=== PATIENT | male | born 1965 | race Caucasian/White ===

== ENCOUNTER 2022-08-15 22:21 | Emergency (ER) | payer BC, OTHER ==
[2022-08-15] MEDS ORDERED: Sodium Chloride 0.9% 1000 ML 1,000 ML IV STA (22:40)
[2022-08-15] MEDS ORDERED: Zofran 4 MG/2 ML VIAL IV ONE (22:40)
[2022-08-15] MEDS ORDERED: MORPHINE SULFATE 4 MG INJ IV ONE (22:40)
[2022-08-15] MEDS ORDERED: MORPHINE SULFATE 4 MG INJ ONE (22:44)
[2022-08-15] MEDS ORDERED: Zofran 4 MG/2 ML VIAL ONE (22:44)
[2022-08-15] MEDS ORDERED: Sodium Chloride 0.9% 1000 ML 1,000 ML ONE (22:44)
[2022-08-15 22:53] LABS: Absolute Neutrophil Ct (ANC) 6.29 x10^3/uL (1.4-6.9); Basophil (Absolute #) 0.07 x10^3/uL (0-0.4); Eosinophil % 1.9 % (0.00-5.0); Eosinophil (Absolute #) 0.18 x10^3/uL (0-0.5); Hematocrit 46.1 % (42-50); Hemoglobin 15.7 g/dL (12.5-18.0); Lymphocyte (Absolute #) 2.46 x10^3/uL (1.0-4.6); Lymphocytes % 25.5 % (24.0-44.0); Mean Cell Volume 90.2 fL (78-100); Mean Corpuscular Hemoglobin 30.7 pg (26-32); Mean Corpuscular Hgb Concent. 34.1 g/dL (32-36); Mean Platelet Volume 10.4 fL (7.5-11.0); Monocyte (Absolute #) 0.59 x10^3/uL (0.0-1.3); Monocytes % 6.1 % (0.0-12.0); Neutrophil % 65.1 % (36.0-66.0); Platelet Count 197 x10^3/uL (150-450); Red Blood Count 5.11 x10^6/uL (4.1-5.6); Red Cell Distribution Width 13.6 % (11.5-14.0); White Blood Count 9.7 x10^3/uL (4.0-10.5)
[2022-08-15 23:07] LABS: ALBUMIN 4.9 g/dL (3.5-5.0); ALKALINE PHOSPHATASE 90 U/L (38-126); ANION GAP 12.2 MEQ/L (5-15); BLOOD UREA NITROGEN 20 mg/dL (9-20); CHLORIDE 99 mmol/L (98-107); Calcium 9.3 mg/dL (8.4-10.2); Carbon Dioxide 31 mmol/L (22-30); Creatinine 1 1.01 mg/dL (0.66-1.25); EST GLOMERULAR FILTRATION RATE > 60.0 ML/MIN; Glucose 102 mg/dL (74-106); LIPASE 72 U/L (23-300); SGOT/AST 64 U/L (17-59); SGPT/ALT 63 U/L (0-50); SODIUM 139 mmol/L (137-145); Total Protein 8.4 g/dL (6.3-8.2)
[2022-08-16 00:05] VITALS: PULSE 81
--- NOTE | 2022-08-16 00:08 | ERPHSYRPT ---
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 Triage Nursing Assessment: Patient A/O times 4. Patient able to follow instructions without difficulty. Patient states he thought he had pulled a muscle this Sunday. States his job sent him to [facility] and he was told he had pulled a muscle and was given flexeril. Patient stated the pain was getting better but started to flare up again tonight. Physician History: 57-year-old male presents to our ED with right upper quadrant pain. Pain started on Sunday 4 days ago when he was at work. 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 Patient was sent and new care. [facility] diagnosed him with a pulled muscle. Patient was prescribed Aleve and Flexeril. Pain improved. Patient states pain recurred approximately 1 hour prior to arrival after he coughed. Pain described as an ache that is localized. No radiation. Pain worse palpation right upper quadrant. Pain improved with rest. No blunt trauma. No chest pain or shortness of breath. No nausea vomiting or diaphoresis. Patient voices no other complaints or concerns at this time. Portions of this note were created with voice recognition technology. There may be grammatical, spelling, punctuation or sound alike errors Timing/Duration: day(s) (4 days) Severity: moderate Modifying Factors: Improves With: movement Associated Symptoms: denies symptoms Allergies/Adverse Reactions: No Known Drug Allergies Allergy (Unverified 08/16/22 00:35) Hx Tetanus, Diphtheria Vaccination/Date Given: No Hx Influenza Vaccination/Date Given: No Hx Pneumococcal Vaccination/Date Given: No Immunizations Up to Date: Yes Travel Risk - International Travel Have you traveled outside of the country in past 3 weeks: No - Coronavirus Screening Are you exhibiting any of the following symptoms?: No Close contact with a COVID-19 positive Pt in past 14-21 Days: No - Vaccine Status Have you recieved a Covid-19 vaccination: No - Review of Systems Constitutional: No Symptoms, No Fever, No Chills Eyes: No Symptoms Ears, Nose, & Throat: No Symptoms Respiratory: No Symptoms, No Cough, No Dyspnea Cardiac: No Symptoms, No Chest Pain, No Edema, No Syncope Abdominal/Gastrointestinal: No Symptoms, No Abdominal Pain, No Nausea, No Vomiting, No Diarrhea Genitourinary Symptoms: No Symptoms, No Dysuria Musculoskeletal: No Symptoms, No Back Pain, No Neck Pain Skin: No Symptoms, No Rash Neurological: No Symptoms, No Dizziness, No Focal Weakness, No Sensory Changes Psychological: No Symptoms Endocrine: No Symptoms Hematologic/Lymphatic: No Symptoms Immunological/Allergic: No Symptoms All Other Systems: Reviewed and Negative - Past Medical History Pertinent Past Medical History: Yes Neurological History: No Pertinent History ENT History: No Pertinent History Cardiac History: Hypertension Respiratory History: Asthma Endocrine Medical History: No Pertinent History Musculoskeletal History: No Pertinent History GI Medical History: No Pertinent History History: No Pertinent History Psycho-Social History: No Pertinent History Male Reproductive Disorders: No Pertinent History - Past Surgical History Past Surgical History: Yes Neuro Surgical History: No Pertinent History Cardiac: No Pertinent History Respiratory: No Pertinent History Gastrointestinal: Appendectomy Genitourinary: No Pertinent History Musculoskeletal: No Pertinent History Male Surgical History: No Pertinent History - Social History Smoking Status: Former smoker Exposure to second hand smoke: No Drug Use: none Patient Lives Alone: No - Nursing Vital Signs Nursing Vital Signs: Initial Vital Signs Temperature 98.2 F 08/15/22 22:22 Pulse Rate 91 H 08/15/22 22:22 Respiratory Rate 22 08/15/22 22:22 Blood Pressure 185/108 08/15/22 22:22 O2 Sat by Pulse Oximetry 99 08/15/22 22:22 Pain Scale Pain Intensity 5 - Physical Exam General Appearance: no apparent distress, alert Eye Exam: PERRL/EOMI, eyes nml inspection Ears, Nose, Throat Exam: normal ENT inspection, TMs normal, pharynx normal, moist mucous membranes Neck Exam: normal inspection, non-tender, supple, full range of motion Respiratory Exam: normal breath sounds, lungs clear, airway intact, No resp iratory distress Cardiovascular Exam: regular rate/rhythm, normal heart sounds, normal peripheral pulses Gastrointestinal/Abdomen Exam: soft, normal bowel sounds, other (Tenderness to palpation right upper quadrant abdomen.), No tenderness, No mass Back Exam: normal inspection, normal range of motion, No CVA tenderness, No vertebral tenderness Extremity Exam: normal inspection, normal range of motion, pelvis stable Neurologic Exam: alert, oriented x 3, cooperative, normal mood/affect, nml cerebellar function, nml station & gait, sensation nml, No motor deficits Skin Exam: normal color, warm, dry, No rash Lymphatic Exam: No adenopathy SpO2 Interpretation: normal SpO2: 99 O2 Delivery: Room Air - Course Nursing assessment & vital signs reviewed: Yes - CT Exams Abdomen/Pelvis CT Interpretation: Tele-radiologist Report (6.6 mm pulmonary nodule, exophytic hyperdense cyst partially calcified versus best 15.7 mm midpole right kidney distal body of the stomach 3 x 4.1 cm fat distal lesion consistent with lipoma.) Ordered Tests: Active Orders 24 hr Category Date Time Status IV Insertion STAT Care 08/15/22 22:40 Completed ABDOMEN AND PELVIS W/0 CONTRAS [CT] Stat Exams 08/15/22 22:40 Taken CBC W DIFF Stat Lab 08/15/22 22:31 Completed CMP Stat Lab 08/15/22 22:31 Completed LIPASE Stat Lab 08/15/22 22:31 Completed TROPONIN Q4H Lab 08/15/22 22:31 Completed Medication Summary Discontinued Medications Generic Name Dose Route Start Last Admin Trade Name Freq PRN Reason Stop Dose Admin Sodium Chloride 1,000 mls @ 999 mls/hr 08/15/22 22:40 08/16/22 01:04 Sodium Chloride 0.9% 1000 Ml IV 08/15/22 23:40 999 mls/hr .Q1H1M STA Infusion Sodium Chloride Confirm 08/15/22 22:44 Sodium Chloride 0.9% 1000 Ml Administered 08/15/22 22:45 Dose 1,000 mls @ ud .ROUTE .STK-MED ONE Ketorolac Tromethamine 30 mg 08/16/22 00:13 08/16/22 00:26 Ketorolac Tromethamine 30 Mg/Ml Inj IV 08/16/22 00:14 30 mg STAT ONE Administration Ketorolac Tromethamine Confirm 08/16/22 00:25 Ketorolac Tromethamine 30 Mg/Ml Inj Administered 08/16/22 00:26 Dose 30 mg .ROUTE .STK-MED ONE Morphine Sulfate 4 mg 08/15/22 22:40 08/15/22 22:47 Morphine Sulfate 4 Mg/Ml Injection IV 08/15/22 22:41 4 mg STAT ONE Administration Morphine Sulfate Confirm 08/15/22 22:44 Morphine Sulfate 4 Mg/Ml Injection Administered 08/15/22 22:45 Dose 4 mg .ROUTE .STK-MED ONE Ondansetron HCl 4 mg 08/15/22 22:40 08/15/22 22:47 Ondansetron Hcl 4 Mg/2 Ml Vial IV 08/15/22 22:41 4 mg STAT ONE Administration Ondansetron HCl Confirm 08/15/22 22:44 Ondansetron Hcl 4 Mg/2 Ml Vial Administered 08/15/22 22:45 Dose 4 mg .ROUTE .STK-MED ONE Lab/Rad Data: Laboratory Result Diagrams 08/15/22 22:31 12 22:31 Laboratory Results 08/15/22 08/15/22 08/15/22 Range/Units 22:31 22:31 22:31 WBC 9.7 (4.0-10.5) x10^3/uL RBC 5.11 (4.1-5.6) x10^6/uL Hgb 15.7 (12.5-18.0) g/dL Hct 46.1 (42-50) % MCV 90.2 (78-100) fL MCH 30.7 (26-32) pg MCHC 34.1 (32-36) g/dL RDW 13.6 (11.5-14.0) % Plt Count 197 (150-450) x10^3/uL MPV 10.4 (7.5-11.0) fL Gran % 65.1 (36.0-66.0) % Immature Gran % (Auto) 0.7 H (0.00-0.4) % Nucleat RBC Rel Count 0.0 (0.00-0.1) % Eos # (Auto) 0.18 (0-0.5) x10^3/uL Immature Gran # (Auto) 0.07 H (0.00-0.03) x10^3u/L Absolute Lymphs (auto) 2.46 (1.0-4.6) x10^3/uL Absolute Monos (auto) 0.59 (0.0-1.3) x10^3/uL Absolute Nucleated RBC 0.00 (0.00-0.01) x10^3u/L Lymphocytes % 25.5 (24.0-44.0) % Monocytes % 6.1 (0.0-12.0) % Eosinophils % 1.9 (0.00-5.0) % Basophils % 0.7 (0.0-0.4) % Absolute Granulocytes 6.29 (1.4-6.9) x10^3/uL Basophils # 0.07 (0-0.4) x10^3/uL Sodium 139 (137-145) mmol/L Potassium 4.0 (3.5-5.1) mmol/L Chloride 99 (98-107) mmol/L Carbon Dioxide 31 H (22-30) mmol/L Anion Gap 12.2 (5-15) MEQ/L BUN 20 (9-20) mg/dL Creatinine 1.01 (0.66-1.25) mg/dL Estimated GFR > 60.0 ML/MIN Glucose 102 (74-106) mg/dL Calcium 9.3 (8.4-10.2) mg/dL Total Bilirubin 1.00 (0.2-1.3) mg/dL AST 64 H (17-59) U/L ALT 63 H (0-50) U/L Alkaline Phosphatase 90 (38-126) U/L Troponin I < 0.012 (0.000-0.034) ng/mL Serum Total Protein 8.4 H (6.3-8.2) g/dL Albumin 4.9 (3.5-5.0) g/dL Lipase 72 (23-300) U/L - Progress Progress: improved Progress Note: CT scan incidentally found a renal mass. Patient advised of the mass. Patient advised of the importance of follow-up with his primary care doctor to obtain either a CT with contrast or ultrasound. Patient reassessed. Pain significantly improved. Patient states ready for discharge. No indication for further work-up at this time. Patient agrees to follow-up with his primary care doctor within 48 hours for evaluation. Portions of this note were created with voice recognition technology. There may be grammatical, spelling, punctuation or sound alike errors Counseled pt/family regarding: lab results, diagnosis, need for follow-up, rad results - Departure Departure Disposition: Home Clinical Impression: Abdominal pain Condition: Stable Critical Care Time: No Referrals: CARLOS RAPHAEL [Primary Care Provider] - Follow up/PCP as directed Instructions: Abdominal Pain, Adult ED Additional Instructions: You will require a follow-up CT scan with contrast or renal ultrasound to further assess the lesion observed on your right kidney. Discharge/Care Plan KYLAH MALIN was seen on 08/16/22 in the Emergency Room. The patient was counseled regarding Diagnosis,Lab results, Imaging studies, need for follow up and when to return to the Emergency Room. Prescriptions given: Discharge Note I have spoken with the patient and/or caregivers. I have explained the patient's condition, diagnosis and treatment plan based on the information available to me at this time. I have answered the patient's and/or caregiver's questions and addressed any concerns. The patient and/or caregivers have as good understanding of the patient's diagnosis, condition and treatment plan as can be expected at this point. The vital signs have been stable. The patient's condition is stable and appropriate for discharge from the emergency department. The patient will pursue further outpatient evaluation with the primary care physician or other designated or consulting physician as outlined in the discharge instructions. The patient and/or caregivers are agreeable to this plan of care and follow-up instructions have been explained in detail. The patient and/or caregivers have received these instruction. The patient/and or caregivers are aware that any significant change in condition or worsening of symptoms should prompt an immediate return to this or the closest emergency department or call 911. Prescriptions: Ketorolac Trometh 10 mg Tab [TORAdol 10 MG TABLET] 10 mg PO TID 5 Days #15 tablet
[2022-08-16] MEDS ORDERED: TORAdol 30 mg Injection IV ONE (00:13)
[2022-08-16] MEDS ORDERED: TORAdol 30 mg Injection ONE (00:25)
[2022-08-16 01:02] VITALS: BP 162/82
[2022-08-16 06:40] VITALS: O2SAT 99
--- NOTE | 2022-08-16 08:57 | XRAY ---
Indication: Upper abdomen pain. Multiple contiguous axial images obtained through the abdomen and pelvis without contrast. Comparison: None Lung bases demonstrates minimal subsegmental atelectasis/scarring. Also incompletely visualized 6 x 9 mm right middle lobe noncalcified nodule. Heart is not enlarged. Stomach is distended with food/fluid. Noncontrasted stomach and bowel loops appear nonobstructed. Appendectomy reported. No free fluid/air. Right mid to upper kidney demonstrates a 1.6 cm exophytic partially calcified mass. Additional 1.6 cm right mid renal cortical cyst. Incidental 1.1 cm right lobe hepatic cyst, 1 cm left adrenal adenoma, and 18.2 cm splenomegaly. Remaining liver, gallbladder, pancreas, spleen, adrenal glands, kidneys, ureters, and bladder are unremarkable for noncontrast exam. Minimal aortoiliac calcifications without AAA. Osseous structures intact with mild degenerative changes throughout the spine. No ventral or inguinal hernias. Right rectus abdominis muscle is asymmetrically enlarged up to 3.7 cm in thickness and at least 10 cm in CC dimension demonstrating subtle heterogeneity, possibly posttraumatic. Slightly more inferior and lateral to this, there is subcutaneous stranding also presumed posttraumatic. Impression: 1. Suspicious right renal exophytic partially calcified mass. CT or MRI with contrast exam may yield further information. Also small right renal cortical cyst. 2. Enlarged right rectus abdominis muscle with adjacent subcutaneous stranding presumed posttraumatic. 3. Incompletely visualized indeterminate right middle lobe noncalcified pulmonary nodule. Outside comparison studies recommended if available. If not, CT chest may yield further information. 4. Incidental tiny hepatic cyst, tiny left adrenal adenoma, splenomegaly, and chronic bony findings. Comment: Preliminary interpretation made by [facility] who does not report rectus abdominis muscle findings. Telephone report was given to Dr. Boyce at 0848 hours on July 17, 2022.
== END 2022-08-16 00:57 | disposition home or self-care (01) ==
LOC: ED 22:21
DX: R10.11 Right upper quadrant pain (principal); S30.1XXA Contusion of abdominal wall, initial encounter; X50.9XXA Other and unspecified overexertion or strenuous movements or postures, initial encounter; Y99.0 Civilian activity done for income or pay; I10 Essential (primary) hypertension; Z28.310 Unvaccinated for COVID-19
CPT/HCPCS: 36000; 36415; 74176; 80053; 83690; 84484; 85025; 96374; 96375; 99284; J1885; J2270; J2405